=== PATIENT | female | born 1955 | race Asian ===

== ENCOUNTER 2021-03-10 08:45 | Emergency (ER) | payer MEDICARE ==
[2021-03-10] MEDS ORDERED: ONDANSETRON 4 MG/2 ML INJ IV ONE (11:22)
[2021-03-10] MEDS ORDERED: methylPREDNISolone Sod Succinate 125 MG/2 ML INJ IV ONE (11:22)
[2021-03-10] MEDS ORDERED: MORPHINE 4 MG/1 ML INJ IV ONE (11:23)
[2021-03-10] MEDS ORDERED: ALBUTEROL 2.5 MG/3 ML NEBU IH ONE (11:23)
[2021-03-10] MEDS ORDERED: IPRATROPIUM 0.02% NEBU 2.5 ML IH ONE (11:23)
--- NOTE | 2021-03-10 11:31 | Emergency Department Report ---
HPI - General Chief Complaint: Dyspnea/Respdistress Time Seen by Provider: 03/10/21 10:54 - HPI HPI: 65-year-old -[place] female presents to the emergency department with complaints of abdominal pain, shortness of breath, wheezing that all started early this morning around 5 AM. She has not taken anything for symptoms prior to presentation. Patient says about her abdominal pain, "it might be an ulcer or gastritis or something." She says that she does have a history of a ulcer but it has not bothered her for "more than 4 decades." She has a past medical history of hypertension, anxiety, diabetes, COPD (not oxygen dependent). She is a mild tobacco smoker saying that she smokes about 1 to 2 cigarettes/day. She has not taken anything for symptoms prior to presentation. She complains of her abdominal pain being 8 of 10 in intensity. No known aggravating or alleviating factors at this time. No recent travel or sick contacts at home. ED Past Medical Hx - Past Medical History Previous Medical History?: Yes Hx Hypertension: Yes Hx Diabetes: Yes Hx GERD: Yes Hx Asthma: Yes Hx COPD: Yes - Medications Home Medications: Home Medications Medication Instructions Recorded Confirmed Last Taken Type ALBUTEROL NEB's [Proventil 0.083% 2.5 mg IH TID PRN #1 box 03/10/21 Unknown Rx NEBS] Albuterol Mdi (or & Nicu Only) 2 puff IH QID PRN #8.5 gram 03/10/21 Unknown Rx [ProAir HFA Inhaler] predniSONE [Deltasone] 20 mg PO QDAY #4 tab 03/10/21 Unknown Rx ED Review of Systems ROS: Stated complaint: KHURRAM Other details as noted in HPI Comment: All other systems reviewed and negative Constitutional: denies: chills, fever Eyes: denies: eye pain, vision change ENT: denies: ear pain, throat pain Respiratory: shortness of breath, wheezing Cardiovascular: denies: chest pain, palpitations Gastrointestinal: abdominal pain, nausea. denies: vomiting Genitourinary: denies: dysuria, discharge Musculoskeletal: denies: back pain, arthralgia Neurological: denies: headache, weakness Physical Exam - Physical Exam Vital Signs: Vital Signs 03/10/21 08:48 Temperature 98.6 F Pulse Rate 76 Respiratory 18 Rate Blood Pressure 142/104 [Left] O2 Sat by Pulse 98 Oximetry Physical Exam: GENERAL: The patient is well-developed well-nourished. HENT: Normocephalic. Atraumatic. Patient has moist mucous membranes. EYES: Extraocular motions are intact. NECK: Supple. Trachea is midline. CHEST/LUNGS: Moderate wheezing throughout the chest. There is some tachypnea but no accessory muscle use. HEART/CARDIOVASCULAR: Regular. There is no tachycardia. There is no murmur. ABDOMEN: Abdomen is soft. Mild generalized abdominal tenderness to palpation. No guarding. Patient has normal bowel sounds. There is no abdominal distention. SKIN: Skin is warm and dry. NEURO: The patient is awake, alert, and oriented. The patient is cooperative. The patient has no focal neurologic deficits. Normal speech. MUSCULOSKELETAL: There is no tenderness or deformity. There is no limitation range of motion. ED Course Vital Signs 03/10/21 08:48 Temperature 98.6 F Pulse Rate 76 Respiratory 18 Rate Blood Pressure 142/104 [Left] O2 Sat by Pulse 98 Oximetry ED Medical Decision Making - Lab Data Result diagrams: 03/10/21 12:11 03/10/21 12:11 - Radiology Data Radiology results: report reviewed CT ABDOMEN AND PELVIS WITH IV CONTRAST INDICATION: Abd pain. COMPARISON: None available. TECHNIQUE: All CT scans at this facility use dose modulation, automated exposure control, iterative reconstruction or weight based dosing, when appropriate, to reduce radiation dose to as low as reasonably achievable. FINDINGS: Lung Bases: No significant abnormality. Skeletal System: No acute abnormality. ABDOMEN: Liver: No significant abnormality. Gallbladder: Removed. Bile Ducts: No significant abnormality. Adrenals: No significant abnormality. Right Kidney: No significant abnormality. Upper pole incidental simple cyst is noted. Left Kidney: No significant abnormality. There are a couple simple cysts. Pancreas: No significant abnormality. Spleen: No significant abnormality. Upper GI tract: No significant abnormality. Lymph Nodes: No significant adenopathy. Aorta: No significant abnormality. Additional Findings: No significant abnormality. PELVIS: Colon: No acute abnormality. There is minimal diverticulosis. Urinary Bladder and Distal Ureters: No significant abnormality. Appendix: No significant abnormality. Lymph Nodes: No significant adenopathy. Additional Findings: Calcified uterine fibroid is noted at the fundus. IMPRESSION: 1. No acute process in the abdomen or pelvis. 2. Incidental findings, as above. - Medical Decision Making This patient presents to the emergency department with complaint of abdominal pain, shortness of breath and wheezing that started around 5 AM. On examination there is some reproducible generalized abdominal tenderness to palpation. However the abdomen is soft and nondistended. The patient does have some audib le wheezing throughout the chest with some tachypnea, but no accessory muscle use. Chest x-ray does not show any pneumonia, pleural effusions, pneumothorax, widened mediastinum, or any other acute process. Abdominal x-ray shows nonspecific nonobstructive bowel gas, no free air. Patient was given some IV Solu-Medrol, nebulizer breathing treatments with both albuterol and Atrovent, and IV analgesia. Upon reevaluation the patient's wheezing/bronchospasm has almost completely resolved. A CT scan of the abdomen pelvis with IV contrast was done that does not show any acute process or etiology of her discomfort. The patient was reevaluated multiple times over multiple hours and appears greatly improved. The patient is seen drinking Coca-Cola and asking for something to eat. Vital signs sandy ssuring including being afebrile. For all these reason she appears safe for discharge home. She has been given a course of steroids and an albuterol inhaler. She has been instructed to follow-up with her primary care physician and return to the ER with any worsening of her symptoms or with any acute distress. Critical Care Time: No Critical care attestation.: If time is entered above; I have spent that time in minutes in the direct care of this critically ill patient, excluding procedure time. ED Disposition Clinical Impression: COPD exacerbation, Bronchospasm Abdominal pain Qualifiers: Abdominal location: generalized Qualified Code(s): R10.84 - Generalized abdominal pain Disposition: 01 HOME / SELF CARE / HOMELESS Is pt being admited?: No Condition: Stable Instructions: Bronchospasm, Adult, Chronic Obstructive Pulmonary Disease, Abdominal Pain, Adult, Chronic Obstructive Pulmonary Disease (ED) Additional Instructions: Please follow-up with your primary care physician in the next few days. Return to the emergency department with any worsening of your symptoms, new or concerning symptoms not addressed during this current emergency department visit, or with any acute distress. Prescriptions: predniSONE [Deltasone] 20 mg PO QDAY #4 tab Albuterol Mdi (or & Nicu Only) [ProAir HFA Inhaler] 2 puff IH QID PRN #8.5 gram PRN Reason: Shortness Of Breath ALBUTEROL NEB's [Proventil 0.083% NEBS] 2.5 mg IH TID PRN #1 box PRN Reason: Wheezing Referrals: PRIMARY CARE, [Primary Care Provider] - 2-3 Days Time of Disposition: 16:57
--- NOTE | 2021-03-10 11:57 | XRay Report ---
ABDOMEN SERIES WITH ONE VIEW CHEST INDICATION / CLINICAL INFORMATION: Abd pain, SOB. COMPARISON: None available. FINDINGS: TUBES / LINES: None. BOWEL GAS PATTERN: No significant abnormality. FREE AIR / EXTRALUMINAL GAS: None seen. ADDITIONAL FINDINGS: No significant additional findings. LUNGS: Visualized lungs show no significant abnormality. IMPRESSION: 1. No significant abnormality. Signer Name: Josh Arnold MD Signed: 03/10/2021 11:48 AM Workstation Name: [id number]
[2021-03-10 13:43] LABS: Basophils % (Auto) 0.3 % (0.0-1.8); Eosinophils # (Auto) 0.1 K/mm3 (0.0-0.4); Eosinophils % (Auto) 1.6 % (0.0-4.3); Hemoglobin 14.1 gm/dl (10.1-14.3); Lymphocytes # (Auto) 1.3 K/mm3 (1.2-5.4); Mean Corpuscular HGB Conc 31 % (30-34); Mean Corpuscular Volume 85 fl (79-97); Monocytes # (Auto) 0.6 K/mm3 (0.0-0.8); Monocytes % (Auto) 9.6 % (0.0-7.3); Platelet Count 422 K/mm3 (140-440); Red Blood Count 5.31 M/mm3 (3.65-5.03); Red Cell Distribution Width 16.2 % (13.2-15.2)
[2021-03-10 14:02] LABS: Alanine Aminotransferase 5 units/L (7-56); Albumin 4.3 g/dL (3.9-5); BUN/Creatinine Ratio 14; Blood Urea Nitrogen 11 mg/dL (7-17); Calcium 9.1 mg/dL (8.4-10.2); Hemolysis Index 7
[2021-03-10] MEDS ORDERED: MORPHINE 2 MG/1 ML INJ IV ONE (15:47)
--- NOTE | 2021-03-10 16:48 | Cat Scan Report ---
CT ABDOMEN AND PELVIS WITH IV CONTRAST INDICATION: Abd pain. COMPARISON: None available. TECHNIQUE: All CT scans at this facility use dose modulation, automated exposure control, iterative reconstructi on or weight based dosing, when appropriate, to reduce radiation dose to as low as reasonably achieva ble. FINDINGS: Lung Bases: No significant abnormality. Skeletal System: No acute abnormality. ABDOMEN: Liver: No significant abnormality. Gallbladder: Removed. Bile Ducts: No significant abnormality. Adrenals: No significant abnormality. Right Kidney: No significant abnormality. Upper pole incidental simple cyst is noted. Left Kidney: No significant abnormality. There are a couple simple cysts. Pancreas: No significant abnormality. Spleen: No significant abnormality. Upper GI tract: No significant abnormality. Lymph Nodes: No significant adenopathy. Aorta: No significant abnormality. Additional Findings: No significant abnormality. PELVIS: Colon: No acute abnormality. There is minimal diverticulosis. Urinary Bladder and Distal Ureters: No significant abnormality. Appendix: No significant abnormality. Lymph Nodes: No significant adenopathy. Additional Findings: Calcified uterine fibroid is noted at the fundus. IMPRESSION: 1. No acute process in the abdomen or pelvis. 2. Incidental findings, as above. Signer Name: Fuad Collins MD Signed: 03/10/2021 4:44 PM Workstation Name: [id number]
[2021-03-10 17:24] VITALS: BP 162/110
== END 2021-03-10 17:23 | disposition home or self-care (01) ==
LOC: ED 08:45
DX: J44.1 Chronic obstructive pulmonary disease with (acute) exacerbation (principal); J98.01 Acute bronchospasm; I10 Essential (primary) hypertension; E11.9 Type 2 diabetes mellitus without complications; K21.9 Gastro-esophageal reflux disease without esophagitis; Z79.899 Other long term (current) drug therapy
CPT/HCPCS: 36415; 74022; 74177; 80053; 83690; 83880; 84484; 85025; 94640; 96374; 96375; 99285; J2270; J2405; J2930; Q9967; 94644